=== PATIENT | female | born 1965 | race Caucasian/White ===

== ENCOUNTER 2017-01-28 15:39 | Emergency (ER) | payer BC ==
[2017-01-28 15:46] VITALS: TEMP 97.7
--- NOTE | 2017-01-28 16:52 | ED ---
Extremity Problem HPI - General Chief complaint: Extremity Problem,Nontraumatic Stated complaint: Hip Pain Source: patient Mode of arrival: wheelchair Limitations: no limitations - History of Present Illness Initial comments: Patient is a 52-year-old female present for evaluation for right hip pain. Past medical history as below. Patient states that she's been having this right hip pain for several weeks. It acutely worsened over the last 24-48 hours. States the pain is 28 out of 10. Denies any fall or trauma to the right hip. She saw her primary care physician who directed her to orthopedics. They ordered an MRI which the patient could not tolerate secondary to her being claustrophobic. His and recommended that she come to the ER for further evaluation. Plain films provided by the PCP were negative for acute fracture dislocation. There is a questionable cyst. No redness or warmth to the area. The patient states that her right leg is swollen. Cannot ambulate well. Denies any IV drug abuse. No urinary symptoms. No vaginal discharge. Denies any other systemic signs such as fever, chills, headache and changes of vision, URI symptoms, shortness breath, cough, chest pain, nausea, vomiting, diarrhea, pain or burning with urination. - Related Data Home Medications Medication Instructions Recorded Confirmed Cyclobenzaprine [Flexeril] 10 mg PO TID 01/28/17 01/28/17 Diazepam [Valium] 5 mg PO ONCE 01/28/17 01/28/17 HYDROcodone/APAP 10-325MG [[place] 1 tab PO DAILY PRN 01/28/17 01/28/17 10-325] Previous Rx's Medication Instructions Recorded Naproxen [Naprosyn] 500 mg PO Q12HR #10 tab 01/28/17 predniSONE 40 mg PO DAILY #4 tab 01/28/17 Allergies Allergy/AdvReac Type Severity Reaction Status Date / Time Penicillins Allergy Unknown Verified 01/28/17 16:32 Review of Systems ROS Statement: Those systems with pertinent positive or pertinent negative responses have been documented in the HPI. ROS Other: All systems not noted in ROS Statement are negative. Past Medical History Past Medical History: No Reported History History of Any Multi-Drug Resistant Organisms: None Reported Past Surgical History: Section, Hysterectomy Past Psychological History: Anxiety Smoking Status: Never smoker Past Alcohol Use History: Occasional Past Drug Use History: None Reported General Exam Limitations: no limitations General appearance: alert, in no apparent distress, other (Sitting upright in bed and states that she is in pain) Head exam: Present: atraumatic, normocephalic, normal inspection Eye exam: Present: normal appearance, PERRL, EOMI. Absent: scleral icterus, conjunctival injection, periorbital swelling ENT exam: Present: normal exam, mucous membranes moist Neck exam: Present: normal inspection. Absent: tenderness, meningismus, lymphadenopathy Respiratory exam: Present: normal lung sounds bilaterally. Absent: respiratory distress, wheezes, rales, rhonchi, stridor Cardiovascular Exam: Present: regular rate, normal rhythm, normal heart sounds. Absent: systolic murmur, diastolic murmur, rubs, gallop, clicks GI/Abdominal exam: Present: soft, normal bowel sounds. Absent: distended, tenderness, guarding, rebound, rigid Extremities exam: Present: normal inspection, tenderness, normal capillary refill, other (The right hip is guarded in flexion. No overlying cellulitis or masses palpated. There is a palpable tendon in the proximal femur which is exquisitely tender to the touch. Limited range of motion of the right knee. No swelling to the right knee.). Absent: pedal edema, joint swelling, calf tenderness Back exam: Present: normal inspection Neurological exam: Present: alert, oriented X3, CN II-XII intact, other ( Sensation intact of the right lower extremity. Pulses are equal bilaterally.) Psychiatric exam: Present: normal affect, normal mood Skin exam: Present: warm, dry, intact, normal color. Absent: rash Course Vital Signs 01/28/17 01/28/17 01/28/17 15:41 19:56 20:43 Temperature 97.7 F Pulse Rate 96 70 65 Respiratory 20 18 16 Rate Blood Pressure 98/62 154/60 145/90 O2 Sat by Pulse 98 99 97 Oximetry Medical Decision Making - Medical Decision Making Patient is a 52-year-old female presents for evaluation for worsening right hip pain over the last several weeks. Unable to tolerate an MRI today. No acute fracture dislocation on plain films today. However she is exquisitely tender the right hip. Questionable palpable tendon to the right proximal femur. We will order a venous duplex of the right lower extremity. CT right pelvis. Basic labs. Patient does not want anything for pain at this time. 1700: Patient requesting something for pain. Ordered morphine and Zofran and Toradol. 1719: Reviewed basic labs. Hyperkalemia 5.4. Ordered an EKG. Bilirubin slightly elevated. Rest of her labs are within normal limits. Awaiting CT imaging and ultrasound findings. 1757: Reviewed EKG. Normal sinus rhythm at 71. [place] 124. QRS 86. QTc 423. No ST changes. No findings consistent with hyperkalemia. There is Q waves in II, III, and F aVF. 1899: Discussed urinalysis findings with the patient. She states that she always has blood in her urine and always has oxalate crystals in her urine. Denies any ethylene glycol ingestion. Denies history of kidney stones. Awaiting CPK with the CT findings of myositis of the right gluteus. Pain is controlled at this time as long she is not moving. 2024: Discussed the case with Dr. Coughlin -encourage discharge with steroids, naproxen, muscle relaxer. We will discuss with the patient and she feels comfortable discharge versus observation for pain control. Patient actually states that her pain is greatly improved. Can ambulate. Discussed my concerns in the conversation I had with Dr. Coughlin. As her pain is improved and she has physical exam findings of tendinitis, she elected to go home and trial of naproxen, prednisone. She was given a prescription for Flexeril for home by her primary care physician. She also has orthopedic evaluation established. Again she elects to go home. Discussed risks and benefits. States that she was closing can return immediately if her symptoms change or worsen. She will return if she develops any high fevers or any redness or warmth to the right hip. She does not have any symptoms of this at this time. Discussed further signs and symptoms on when to return to the emergency department for further evaluation. Worse understanding. Comfortable discharge home and will call her primary care physician and orthopedic surgeon for reevaluation tomorrow. - Lab Data Result diagrams: 01/28/17 16:55 01/28/17 16:55 Lab Results 01/28/17 01/28/17 01/28/17 Range/Units 16:55 16:55 16:55 WBC 9.8 (3.8-10.6) k/uL RBC 4.65 (3.80-5.40) m/uL Hgb 15.1 (11.4-16.0) gm/dL Hct 44.6 (34.0-46.0) % MCV 95.9 (80.0-100.0) fL MCH 32.4 (25.0-35.0) pg MCHC 33.8 (31.0-37.0) g/dL RDW 13.5 (11.5-15.5) % Plt Count 310 (150-450) k/uL Neutrophils % 78 % Lymphocytes % 13 % Monocytes % 5 % Eosinophils % 1 % Basophils % 1 % Neutrophils # 7.6 (1.3-7.7) k/uL Lymphocytes # 1.3 (1.0-4.8) k/uL Monocytes # 0.5 (0-1.0) k/uL Eosinophils # 0.1 (0-0.7) k/uL Basophils # 0.1 (0-0.2) k/uL Sodium 139 (137-145) mmol/L Potassium 5.4 H (3.5-5.1) mmol/L Chloride 108 H (98-107) mmol/L Carbon Dioxide 22 (22-30) mmol/L Anion Gap 9 mmol/L BUN 12 (7-17) mg/dL Creatinine 0.70 (0.52-1.04) mg/dL Est GFR (MDRD) Af Amer >60 (>60 ml/min/1.73 sqM) Est GFR (MDRD) Non-Af >60 (>60 ml/min/1.73 sqM) Glucose 121 H (74-99) mg/dL Calcium 10.7 H (8.4-10.2) mg/dL Total Bilirubin 1.7 H (0.2-1.3) mg/dL AST 21 (14-36) U/L ALT 29 (9-52) U/L Alkaline Phosphatase 71 (38-126) U/L Creatine Kinase 42 (30-135) U/L Total Protein 7.0 (6.3-8.2) g/dL Albumin 4.5 (3.5-5.0) g/dL Urine Color Urine Appearance (Clear) Urine pH (5.0-8.0) Ur Specific [place] (1.001-1.035) Urine Protein (Negative) Urine Glucose (UA) (Negative) Urine Ketones (Negative) Urine Blood (Negative) Urine Nitrite (Negative) Urine Bilirubin (Negative) Urine Urobilinogen (<2.0) mg/dL Ur Leukocyte Esterase (Negative) Urine RBC (0-5) /hpf Urine WBC (0-5) /hpf Ur Squamous Epith Cells (0-4) /hpf Calcium Oxalate Crystal (None) /hpf Amorphous Sediment (None) /hpf Hyaline Casts (0-2) /lpf Urine Mucus (None) /hpf 01/28/17 Range/Units 18:05 WBC (3.8-10.6) k/uL RBC (3.80-5.40) m/uL Hgb (11.4-16.0) gm/dL Hct (34.0-46.0) % MCV (80.0-100.0) fL MCH (25.0-35.0) pg MCHC (31.0-37.0) g/dL RDW (11.5-15.5) % Plt Count (150-450) k/uL Neutrophils % % Lymphocytes % % Monocytes % % Eosinophils % % Basophils % % Neutrophils # (1.3-7.7) k/uL Lymphocytes # (1.0-4.8) k/uL Monocytes # (0-1.0) k/uL Eosinophils # (0-0.7) k/uL Basophils # (0-0.2) k/uL Sodium (137-145) mmol/L Potassium (3.5-5.1) mmol/L Chloride (98-107) mmol/L Carbon Dioxide (22-30) mmol/L Anion Gap mmol/L BUN (7-17) mg/dL Creatinine (0.52-1.04) mg/dL Est GFR (MDRD) Af Amer (>60 ml/min/1.73 sqM) Est GFR (MDRD) Non-Af (>60 ml/min/1.73 sqM) Glucose (74-99) mg/dL Calcium (8.4-10.2) mg/dL Total Bilirubin (0.2-1.3) mg/dL AST (14-36) U/L ALT (9-52) U/L Alkaline Phosphatase (38-126) U/L Creatine Kinase (30-135) U/L Total Protein (6.3-8.2) g/dL Albumin (3.5-5.0) g/dL Urine Color Yellow Urine Appearance Cloudy H (Clear) Urine pH 6.5 (5.0-8.0) Ur Specific [place] 1.026 (1.001-1.035) Urine Protein 1+ H (Negative) Urine Glucose (UA) Negative (Negative) Urine Ketones Negative (Negative) Urine Blood Small H (Negative) Urine Nitrite Negative (Negative) Urine Bilirubin Negative (Negative) Urine Urobilinogen 2.0 (<2.0) mg/dL Ur Leukocyte Esterase Small H (Negative) Urine RBC 44 H (0-5) /hpf Urine WBC 8 H (0-5) /hpf Ur Squamous Epith Cells 13 H (0-4) /hpf Calcium Oxalate Crystal Few H (None) /hpf Amorphous Sediment Occasional H (None) /hpf Hyaline Casts 8 H (0-2) /lpf Urine Mucus Many H (None) /hpf Disposition Clinical Impression: Right hip pain, Tendinitis Disposition: HOME SELF-CARE Condition: Good Instructions: Arthralgia (ED), Hip Pain (ED) Prescriptions: Naproxen [Naprosyn] 500 mg PO Q12HR #10 tab predniSONE 40 mg PO DAILY #4 tab Referrals: Paul Whitt MD [Primary Care Provider] - 1-2 days
[2017-01-28] MEDS ORDERED: MORPHINE SULFATE 4 MG/ML SYRINGE IVP STA (16:58)
[2017-01-28] MEDS ORDERED: ONDANSETRON 4 MG/2 ML VIAL IVP STA (16:58)
[2017-01-28] MEDS ORDERED: KETOROLAC 30 MG/ML 1 ML VIAL IVP STA (16:58)
[2017-01-28 17:06] LABS: Basophils # (A) 0.1 k/uL (0-0.2); Basophils % (A) 1 %; CHCM 34.6; Eosinophils # (A) 0.1 k/uL (0-0.7); Eosinophils % (A) 1 %; HCT 44.6 % (34.0-46.0); HDW 2.54; HGB 15.1 gm/dL (11.4-16.0); Luc # (Auto) 0.14; Luc % (Auto) 1; Lymphocytes # (A) 1.3 k/uL (1.0-4.8); Lymphocytes % (A) 13 %; MCH 32.4 pg (25.0-35.0); MCHC 33.8 g/dL (31.0-37.0); MCV 95.9 fL (80.0-100.0); Mean Platelet Volume 7.2; Monocytes # (A) 0.5 k/uL (0-1.0); Monocytes % (A) 5 %; Neutrophils # (A) 7.6 k/uL (1.3-7.7); Neutrophils % (A) 78 %; RBC 4.65 m/uL (3.80-5.40); RDW 13.5 % (11.5-15.5); WBC 9.8 k/uL (3.8-10.6); WBC (Perox) 9.09
[2017-01-28 17:17] LABS: ALT 29 U/L (9-52); AST 21 U/L (14-36); Alkaline Phosphatase 71 U/L (38-126); Anion Gap 9 mmol/L; Blood Urea Nitrogen 12 mg/dL (7-17); Calcium 10.7 mg/dL (8.4-10.2); Carbon Dioxide 22 mmol/L (22-30); Chloride 108 mmol/L (98-107); Glucose 121 mg/dL (74-99); Non-African American GFR(MDRD) >60 (>60 ml/min/1.73 sqM); Potassium 5.4 mmol/L (3.5-5.1); Sodium 139 mmol/L (137-145); Total Bilirubin 1.7 mg/dL (0.2-1.3)
--- NOTE | 2017-01-28 17:45 | US ---
EXAMINATION TYPE: US venous doppler duplex LE RT DATE OF EXAM: 01/28/2017 5:30 PM COMPARISON: NONE CLINICAL HISTORY: Pain. Right leg pain SIDE PERFORMED: Right TECHNIQUE: The lower extremity deep venous system is examined utilizing real time linear array sonog latrice with graded compression, doppler sonography and color-flow sonography. VESSELS IMAGED: External Iliac Vein (EIV) Common Femoral Vein Deep Femoral Vein Greater Saphenous Vein * Femoral Vein Popliteal Vein Small Saphenous Vein * Proximal Calf Veins (* superficial vessels) Grayscale, color doppler, spectral doppler imaging performed of the deep veins of the lower extremity Tthere is normal flow, compressibility, vascular waveforms. Right Leg: Negative for DVT IMPRESSION: No evidence of DVT right leg
[2017-01-28 18:51] LABS: Amorphous Sediment,Urine Occasional /hpf; Appearance,Urine Cloudy (Clear); Bilirubin,Urine Negative (Negative); Calcium Oxalate Crystals,Urine Few /hpf; Glucose,Urine (UA) Negative (Negative); Ketones,Urine Negative (Negative); Leukocyte Esterase,Urine Small (Negative); Mucus,Urine Many /hpf; Nitrite,Urine Negative (Negative); PH, Urine 6.5 (5.0-8.0); Particle Count 24113; Protein,Urine 1+ (Negative); RBC,Urine 44 /hpf (0-5); Specific Gravity,Urine 1.026 (1.001-1.035); Squamous Epithelial Cell,Urine 13 /hpf (0-4); UA Billing (MACRO vs. MICRO) MICRO; WBC,Urine 8 /hpf (0-5)
--- NOTE | 2017-01-28 18:59 | CT ---
EXAMINATION TYPE: CT hip RT wo con DATE OF EXAM: 01/28/2017 COMPARISON: NONE HISTORY: RIGHT HIP PAIN. NO KNOWN INJURY. CT DLP: 389 mGycm Automated exposure control for dose reduction was used. Unenhanced CT of the right hip was performed with bone and soft tissue window settings submitted. Sagittal and coronal reconstruction is obtained. FINDINGS: There is elongate curvilinear density in the region of the right gluteus medius musculature there zan ears to be mild edema of the musculature.The calcification extends from the region of the greater tro chanter to the supra-acetabular region. No distinct mass is appreciated at this time. Underlying osse ous structures are grossly intact without evidence for fracture or dislocation. No intraosseous lesio n is seen. IMPRESSION: 1. LINEAR CALCIFICATION WITHIN THE GLUTEUS MEDIUS MUSCULATURE WITH UNDERLYING MUSCULAR EDEMA MAY REFL ECT CHANGES OF MYOSITIS OSSIFICANS. CORRELATE CLINICALLY. NO FRACTURE IS SEEN.
[2017-01-28] MEDS ORDERED: methylPREDNISolone SOD SUCCI 125 MG/2 ML VIAL IV STA (20:21)
[2017-01-28 20:44] VITALS: BP 145/90; PULSE 65; RESP 16
== END 2017-01-28 20:43 | disposition home or self-care (01) ==
LOC: EC 15:39
DX: M77.9 Enthesopathy, unspecified (principal); M25.551 Pain in right hip; F41.9 Anxiety disorder, unspecified; Z79.899 Other long term (current) drug therapy; Z88.0 Allergy status to penicillin
CPT/HCPCS: 36415; 93005; 80053; 82550; 85025; 81001; 93971; 73700; 99284; 96374; 96375 ×3; J2270; J2930; J2405; J1885

== ENCOUNTER 2021-03-14 19:29 | Emergency (ER) | payer BC ==
[2021-03-14 19:53] VITALS: RESP 18; TEMP 98.1
[2021-03-14] MEDS ORDERED: SODIUM CHLORIDE 0.9% 1,000 ML IV STA (20:10)
--- NOTE | 2021-03-14 20:18 | ED ---
General Adult HPI - General Chief complaint: Syncope Stated complaint: Syncope Time Seen by Provider: 03/14/21 19:54 Source: patient, EMS Mode of arrival: EMS Limitations: no limitations - History of Present Illness Initial comments: Dictation was produced using [employer] dictation software. please excuse any grammatical, word or spelling errors. Chief Complaint: 56-year-old feel presents after episode of syncope History of Present Illness: Patient is a 56-year-old female she presents to the emergency department for episode of syncope. Patient was sitting at the kitchen table helping family with homework when all of a sudden she had an episode of syncope. She woke up immediately after. After the syncope she had some short-lived chest pain and shortness of breath. Patient has a little symptoms currently. She states she feels at baseline. Yesterday patient had total knee replacement performed by Dr. Batista. She states that her pain is significant worsened yesterday. She's been taking narcotic medications to manage her pain. Patient avoids of some mild calf pain. No history of DVT. She is not on any anti-cognition medications. Denies any cardiac history. Denies any daily medications. The ROS documented in this emergency department record has been reviewed and confirmed by me. Those systems with pertinent positive or negative responses have been documented in the HPI. All other systems are other negative and/or noncontributory. PHYSICAL EXAM: General Impression: Alert and oriented x3, not in acute distress HEENT: Normocephalic atraumatic, extra-ocular movements intact, pupils equal and reactive to light bilaterally, mucous membranes moist. Cardiovascular: Heart regular rate and rhythm Chest: Able to complete full sentences, no retractions, no tachypnea Abdomen: abdomen soft, non-tender, non-distended, no organomegaly Musculoskeletal: Pulses present and equal in all extremities, no peripheral edema Motor: no focal deficits noted Neurological: CN II-XII grossly intact, no focal motor or sensory deficits noted Skin: Intact with no visualized rashes Psych: Normal affect and mood ED course: 56-year-old female who underwent total knee replacement of the left knee yesterday presents to emergency department after episode of syncope. Patient has no medical comorbidities. He has any chest pain or shortness of breath at the bedside. EKG is unremarkable. Vital signs upon arrival shows blood pressure 91/57, rest of vital signs within acceptable limits. EKG interpretation: Ventricular rate 65, normal sinus rhythm, UT interval 120, QRS 86, QTC 376. No UT prolongation, no QTC prolongation, no ST or T-wave changes noted. Overall, this EKG is unremarkable Laboratory evaluation obtained. CBC, metabolic panel is unremarkable. There is some slight dehydration. Venous Doppler study shows no sonographic evidence of DVT in the left lower extremity. Patient observed in the emergency department for approximately 2 hours and 30 minutes. She is really value to bedside at 10:00 PM found to be stable medical condition. Repeat vitals are improved. Patient clinical stable. Patient be discharged. Patient has no high-risk features for syncope. Advised to follow-up with primary care doctor. Return precautions discussed. - Related Data Home Medications Medication Instructions Recorded Confirmed Cyclobenzaprine [Flexeril] 10 mg PO TID 01/28/17 01/28/17 HYDROcodone/APAP 10-325MG [[place] 1 tab PO DAILY PRN 01/28/17 01/28/17 10-325] diazePAM [Valium] 5 mg PO ONCE 01/28/17 01/28/17 Previous Rx's Medication Instructions Recorded Naproxen [Naprosyn] 500 mg PO Q12HR #10 tab 01/28/17 predniSONE [Deltasone] 40 mg PO DAILY #4 tab 01/28/17 Allergies Allergy/AdvReac Type Severity Reaction Status Date / Time Penicillins Allergy Unknown Verified 01/28/17 16:32 Review of Systems ROS Statement: Those systems with pertinent positive or pertinent negative responses have been documented in the HPI. ROS Other: All systems not noted in ROS Statement are negative. Past Medical History Past Medical History: No Reported History History of Any Multi-Drug Resistant Organisms: None Reported Past Surgical History: Section, Hysterectomy Additional Past Surgical History / Comment(s): Left knee replacement Past Psychological History: Anxiety Smoking Status: Former smoker Past Alcohol Use History: Occasional Past Drug Use History: None Reported General Exam Limitations: no limitations Course Vital Signs 03/14/21 03/14/21 03/14/21 19:40 20:17 20:22 Temperature 98.1 F Pulse Rate 71 80 Pulse Rate [ 70 Manager Operating ] Respiratory 18 18 Rate Blood Pressure 91/57 105/55 O2 Sat by Pulse 96 96 Oximetry Medical Decision Making - Lab Data Result diagrams: 03/14/21 20:05 03/14/21 20:05 Lab Results 03/14/21 03/14/21 Range/Units 20:05 20:05 WBC 7.7 (3.8-10.6) k/uL RBC 3.47 L (3.80-5.40) m/uL Hgb 11.3 L (11.4-16.0) gm/dL Hct 34.0 (34.0-46.0) % MCV 98.0 (80.0-100.0) fL MCH 32.6 (25.0-35.0) pg MCHC 33.3 (31.0-37.0) g/dL RDW 12.6 (11.5-15.5) % Plt Count 263 (150-450) k/uL MPV 7.4 Neutrophils % 75 % Lymphocytes % 17 % Monocytes % 5 % Eosinophils % 1 % Basophils % 1 % Neutrophils # 5.8 (1.3-7.7) k/uL Lymphocytes # 1.3 (1.0-4.8) k/uL Monocytes # 0.4 (0-1.0) k/uL Eosinophils # 0.1 (0-0.7) k/uL Basophils # 0.0 (0-0.2) k/uL Sodium 138 (137-145) mmol/L Potassium 4.2 (3.5-5.1) mmol/L Chloride 109 H (98-107) mmol/L Carbon Dioxide 24 (22-30) mmol/L Anion Gap 5 mmol/L BUN 18 H (7-17) mg/dL Creatinine 0.61 (0.52-1.04) mg/dL Est GFR (CKD-EPI)AfAm >90 (>60 ml/min/1.73 sqM) Est GFR (CKD-EPI)NonAf >90 (>60 ml/min/1.73 sqM) Glucose 108 H (74-99) mg/dL Calcium 9.1 (8.4-10.2) mg/dL Magnesium 1.9 (1.6-2.3) mg/dL Disposition Clinical Impression: Syncope Disposition: HOME SELF-CARE Condition: Good Instructions (If sedation given, give patient instructions): Syncope (ED) Is patient prescribed a controlled substance at d/c from ED?: No Referrals: Paul Whitt MD [Primary Care Provider] - 1-2 days
[2021-03-14 20:19] LABS: Basophils % (A) 1 %; Eosinophils # (A) 0.1 k/uL (0-0.7); Eosinophils % (A) 1 %; HGB 11.3 gm/dL (11.4-16.0); Lymphocytes # (A) 1.3 k/uL (1.0-4.8); Lymphocytes % (A) 17 %; MCH 32.6 pg (25.0-35.0); MCHC 33.3 g/dL (31.0-37.0); Mean Platelet Volume 7.4; Monocytes # (A) 0.4 k/uL (0-1.0); Monocytes % (A) 5 %; Neutrophils # (A) 5.8 k/uL (1.3-7.7); Neutrophils % (A) 75 %; Platelet Count 263 k/uL (150-450); RBC 3.47 m/uL (3.80-5.40); RDW 12.6 % (11.5-15.5); WBC 7.7 k/uL (3.8-10.6)
[2021-03-14 20:23] VITALS: BP 105/55; PULSE 80
[2021-03-14 20:27] LABS: African American GFR (CKD) >90 (>60 ml/min/1.73 sqM); Anion Gap 5 mmol/L; Blood Urea Nitrogen 18 mg/dL (7-17); Calcium 9.1 mg/dL (8.4-10.2); Carbon Dioxide 24 mmol/L (22-30); Chloride 109 mmol/L (98-107); Glucose 108 mg/dL (74-99); Magnesium 1.9 mg/dL (1.6-2.3); Non-African American GFR(CKD) >90 (>60 ml/min/1.73 sqM); Potassium 4.2 mmol/L (3.5-5.1); Sodium 138 mmol/L (137-145)
--- NOTE | 2021-03-14 21:50 | US ---
EXAMINATION TYPE: US venous doppler duplex LE LT DATE OF EXAM: 03/14/2021 8:11 PM COMPARISON: NONE CLINICAL HISTORY: suspect DVT. Leg swelling post total knee day prior. SIDE PERFORMED: Left TECHNIQUE: The lower extremity deep venous system is examined utilizing real time linear array sonog latrice with graded compression, doppler sonography and color-flow sonography. VESSELS IMAGED: Common Femoral Vein Deep Femoral Vein Greater Saphenous Vein * Femoral Vein Popliteal Vein Small Saphenous Vein * Proximal Calf Veins (* superficial vessels) Left Leg: Negative for DVT IMPRESSION: 1. No sonographic evidence of deep venous thrombosis in the left lower extremity. 2. Grayscale, color doppler, spectral doppler imaging performed of the deep veins of the lower extre mities. There is normal flow, compressibility, vascular waveforms.
== END 2021-03-15 06:41 | disposition home or self-care (01) ==
LOC: EC 19:29
DX: R55 Syncope and collapse (principal); F41.9 Anxiety disorder, unspecified; Z88.0 Allergy status to penicillin; Z90.710 Acquired absence of both cervix and uterus; Z96.662 Presence of left artificial ankle joint; Z87.891 Personal history of nicotine dependence
CPT/HCPCS: 36415; 80048; 83735; 85025; 93005; 96360; 99284

== ENCOUNTER 2022-04-23 09:53 | Emergency (ER) | payer BC ==
[2022-04-23 09:58] VITALS: RESP 16
--- NOTE | 2022-04-23 10:11 | ED ---
Chest Pain HPI - General Chief Complaint: Chest Pain Stated Complaint: Chest Pain Time Seen by Provider: 04/23/22 10:00 Source: patient Mode of arrival: wheelchair Limitations: no limitations - History of Present Illness Initial Comments: 57-year-old previously healthy female presents to emergency room with reported chest pain. States the chest pain has been going on over the past few months however the chest pain became significantly worse over the past few weeks. States that it is substernal, 6 out of 10 without radiation. Dull in nature. No associated shortness of breath, nausea or diaphoresis. Denies any fevers, chills or cough. No previous history of cardiac disease. No family history of sudden cardiac . States that her sister has developed cardiac issues in her 60s. Patient has never had any stress testing. She denies calf pain or swelling. No recent travel. No history of DVT or PE. No active chest pain at this time. Denies ripping or tearing sensation to her back. Has not attempted to take any medications at home for her symptoms. No other alleviating, minister helper modifying factors - Related Data Home Medications Medication Instructions Recorded Confirmed Dextroamphetamine/Amphetamine 15 mg PO DAILY PRN 04/23/22 04/23/22 [Adderall] Ferrous Sulfate [Feosol] 325 mg PO DAILY 04/23/22 04/23/22 Allergies Allergy/AdvReac Type Severity Reaction Status Date / Time Penicillins Allergy Swelling Verified 04/23/22 12:28 Review of Systems ROS Statement: Those systems with pertinent positive or pertinent negative responses have been documented in the HPI. ROS Other: All systems not noted in ROS Statement are negative. EKG Findings - EKG Comments: EKG Findings:: EKG demonstrates sinus bradycardia with a rate of 58. MA interval 135. QRS 86. QTC 380. No acute ST segment elevations. Biphasic T- wave in V2 with an inverted T-wave in aVL. EKG interpreted by myself Past Medical History Past Medical History: No Reported History History of Any Multi-Drug Resistant Organisms: None Reported Past Surgical History: Section, Hysterectomy Additional Past Surgical History / Comment(s): Left knee replacement Past Psychological History: Anxiety Smoking Status: Former smoker Past Alcohol Use History: Occasional Past Drug Use History: None Reported General Exam Limitations: no limitations General appearance: alert, in no apparent distress Head exam: Present: atraumatic, normocephalic, normal inspection Eye exam: Present: normal appearance, PERRL, EOMI. Absent: scleral icterus, conjunctival injection, periorbital swelling ENT exam: Present: normal exam, mucous membranes moist Neck exam: Present: normal inspection. Absent: tenderness, meningismus, lymphadenopathy Respiratory exam: Present: normal lung sounds bilaterally. Absent: respiratory distress, wheezes, rales, rhonchi, stridor Cardiovascular Exam: Present: regular rate, normal rhythm, normal heart sounds. Absent: systolic murmur, diastolic murmur, rubs, gallop, clicks GI/Abdominal exam: Present: soft, normal bowel sounds. Absent: distended, tenderness, guarding, rebound, rigid Extremities exam: Present: normal inspection, full ROM, normal capillary refill. Absent: tenderness, pedal edema, joint swelling, calf tenderness Back exam: Present: normal inspection Neurological exam: Present: alert, oriented X3, CN II-XII intact Psychiatric exam: Present: normal affect, normal mood Skin exam: Present: warm, dry, intact, normal color. Absent: rash Course Vital Signs 04/23/22 04/23/22 04/23/22 09:56 10:00 13:21 Temperature 98.2 F 98.7 F Pulse Rate 57 L 62 Respiratory 16 16 Rate Blood Pressure 117/66 105/64 O2 Sat by Pulse 100 99 Oximetry Chest Pain MDM - MDM Upon arrival patient was placed into room 3. A thorough history and physical exam was performed. IV access established. Laboratory studies were conducted. Patient does have a chest x-ray performed. 12-lead EKG demonstrates no acute ST segment elevations or depressions. No concerning ischemic findings. Heart score is 1. Did discuss the results with the patient. Patient would like to follow-up in the outpatient setting. We did provide her with information for the cardiology office. Did recommend that she needs a Holter monitor, echo and possibly a stress test. Patient is to return to the emergency room should she have any new or worsening symptoms. Call the cardiology office today for an appointment. Patient was agreeable to this plan. Discharged home stable condition Disposition Clinical Impression: Chest pain Disposition: HOME SELF-CARE Condition: Stable Instructions (If sedation given, give patient instructions): Chest Pain (ED) Additional Instructions: You need a Holter monitor, echo and stress test. Please call the cardiology office if you do not hear from them as you will need an appointment. Please return for any new or worsening symptoms Is patient prescribed a controlled substance at d/c from ED?: No Referrals: None,Stated [Primary Care Provider] - 1-2 days Pineda Pelayo MD [STAFF PHYSICIAN] - 05/07/22 2:00 pm (Contact cardiology office if needing to change appointments. ) Time of Disposition: 12:53
--- NOTE | 2022-04-23 10:50 | XR ---
EXAMINATION TYPE: XR chest 2V DATE OF EXAM: 04/23/2022 10:46 AM COMPARISON: None TECHNIQUE: XR chest 2V Frontal and lateral views of the chest. CLINICAL INDICATION:Female, 57 years old with history of Chest Pain; FINDINGS: Lungs/Pleura: There is no evidence of pleural effusion, focal consolidation, or pneumothorax. Pulmonary vascularity: Unremarkable. Heart/mediastinum: Cardiomediastinal silhouette is unremarkable. Musculoskeletal: No acute osseous pathology. IMPRESSION: No acute cardiopulmonary disease/process.
[2022-04-23 11:00] VITALS: TEMP 98.7
[2022-04-23 11:03] LABS: ALT 17 U/L (4-34); AST 23 U/L (14-36); African American GFR (CKD) >90 (>60 ml/min/1.73 sqM); Albumin 4.4 g/dL (3.5-5.0); Alkaline Phosphatase 82 U/L (38-126); Anion Gap 6 mmol/L; Blood Urea Nitrogen 17 mg/dL (7-17); Calcium 9.6 mg/dL (8.4-10.2); Carbon Dioxide 26 mmol/L (22-30); Chloride 108 mmol/L (98-107); Glucose 87 mg/dL (74-99); INR 0.9 (<1.2); Lipase 122 U/L (23-300); Magnesium 1.9 mg/dL (1.6-2.3); Non-African American GFR(CKD) >90 (>60 ml/min/1.73 sqM); Partial Thromboplastin Time 23.9 sec (22.0-30.0); Potassium 4.4 mmol/L (3.5-5.1); Prothrombin Time 10.1 sec (9.0-12.0); Sodium 140 mmol/L (137-145); Total Bilirubin 1.4 mg/dL (0.2-1.3); Total Protein 6.7 g/dL (6.3-8.2)
[2022-04-23 11:49] LABS: HCT 38.6 % (34.0-46.0); HGB 13.3 gm/dL (11.4-16.0); MCH 32.4 pg (25.0-35.0); MCHC 34.5 g/dL (31.0-37.0); MCV 93.8 fL (80.0-100.0); Mean Platelet Volume 8.3; Platelet Count 289 k/uL (150-450); RBC 4.12 m/uL (3.80-5.40); RDW 12.8 % (11.5-15.5); WBC 5.2 k/uL (3.8-10.6)
[2022-04-23 13:22] VITALS: BP 105/64; PULSE 62
== END 2022-04-23 13:15 | disposition home or self-care (01) ==
LOC: EC 09:53
DX: R07.9 Chest pain, unspecified (principal); F41.9 Anxiety disorder, unspecified; Z87.891 Personal history of nicotine dependence; Z79.899 Other long term (current) drug therapy; Z88.0 Allergy status to penicillin
CPT/HCPCS: 36415; 71046; 80053; 83690; 83735; 83880; 84484; 85027; 85610; 85730; 93005; 99285

== ENCOUNTER → 2022-11-09 | Outpatient (CLI) | payer BC ==
--- NOTE | 2022-11-10 20:02 | MM ---
Reason for Exam: Screening (asymptomatic). Last mammogram was performed 12 year(s) and 0 month(s) ago. Patient History: Menarche at age 12. First Full-Term at age 18. Hysterectomy at age 27. Postmenopausal. Patient used Hormonal Contraceptives for 1 year. Sister had breast cancer at or over age 50. Risk Values: Savannah 5 year model risk: 2.4%. NCI Lifetime model risk: 12.7%. Prior Study Comparison: No prior studies available for comparison. Tissue Density: The breast tissue is heterogeneously dense. This may lower the sensitivity of mammography. Findings: Analyzed By CAD. There is a 1 cm circumscribed low density mass anterior depth right breast within the upper inner quadrant. The low density suggests a benign etiology such as a cyst. Further ultrasound evaluation is recommended. Otherwise, no discrete abnormality is seen. Overall Assessment: Incomplete: need additional imaging evaluation, BI-RAD 0 Management: Diagnostic Breast Ultrasound of the right breast. Upper inner quadrant for possible 1 cm cyst/mass. [facility] will attempt to contact patient to return for supplemental views and ultrasound if indicated. Electronically signed and approved by: Calvin Zamarripa M.D. Radiologist
== END | disposition home or self-care (01) ==
LOC: RADMAMWWP 09:22
PROVIDERS: ATTEND Family Medicine
DX: Z12.31 Encounter for screening mammogram for malignant neoplasm of breast (principal); Z78.0 Asymptomatic menopausal state; Z80.3 Family history of malignant neoplasm of breast
CPT/HCPCS: 77063; 77067

== ENCOUNTER → 2022-11-16 | Outpatient (CLI) | payer BC ==
--- NOTE | 2022-11-16 10:47 | USB ---
Reason for Exam: Additional evaluation requested from abnormal screening. Patient History: Menarche at age 12. First Full-Term at age 18. Hysterectomy at age 27. Postmenopausal. Patient used Hormonal Contraceptives for 1 year. Sister had breast cancer at or over age 50. Risk Values: Savannah 5 year model risk: 2.4%. NCI Lifetime model risk: 12.7%. Technique: Method: Targeted. Prior Study Comparison: 02/29/2012 Bilateral MG screening mammo w CAD - 2, [facility]. 02/29/2012 Bilateral MG screening mammo w CAD - 2, [facility]. 11/09/2022 Bilateral MG 3D screening mammo w/cad, [facility]. Findings: The upper inner quadrant of the right breast, the axilla of the right breast and the retroareolar of the right breast were scanned. There is a cluster persists at the right 2:00 position measuring 7 mm. A few mildly prominent ducts noted. No solid mass is detected. Overall Assessment: Benign, BI-RAD 2 Management: Screening Mammogram of both breasts in 1 year. A clinical breast exam by your physician is recommended on an annual basis and results should be correlated with mammographic findings. This exam should not preclude additional follow-up of suspicious palpable abnormalities. Results were given to the patient verbally at the time of exam. Electronically signed and approved by: Cesar Munoz M.D. Radiologis
== END | disposition home or self-care (01) ==
LOC: RADUSWWP 10:20
PROVIDERS: ATTEND Family Medicine
DX: R92.8 Other abnormal and inconclusive findings on diagnostic imaging of breast (principal); Z78.0 Asymptomatic menopausal state; Z80.3 Family history of malignant neoplasm of breast

== ENCOUNTER 2023-02-21 13:48 | Emergency (ER) | payer BC ==
--- NOTE | 2023-02-21 14:55 | ED ---
Lower Extremity Injury HPI - General Chief Complaint: Extremity Injury, Lower Stated Complaint: fall Time Seen by Provider: 02/21/23 14:24 Source: patient, RN notes reviewed Mode of arrival: ambulatory Limitations: no limitations - History of Present Illness Initial Comments: This is a 58-year-old female who presents to the emergency department for right foot and ankle pain. States that about 2 hours prior to arrival she tripped on some stairs, falling on the right ankle. She has since been unable to bear weight. States that the area is also very painful to the touch. Denies hitting her head or sustaining any other injuries. Denies any fevers, chills, sore throat, cough, dyspnea, chest pain, palpitations, abdominal pain, nausea, vomiting, diarrhea, back pain, or headaches. MD Complaint: ankle injury, foot injury - Related Data Home Medications Medication Instructions Recorded Confirmed Dextroamphetamine/Amphetamine 15 mg PO DAILY PRN 04/23/22 04/23/22 [Adderall] Ferrous Sulfate [Feosol] 325 mg PO DAILY 04/23/22 04/23/22 Previous Rx's Medication Instructions Recorded HYDROcodone/APAP 5-325MG [Miramonte 1 tab PO Q6HR PRN 3 Days #12 tab 02/21/23 5-325] Allergies Allergy/AdvReac Type Severity Reaction Status Date / Time Penicillins Allergy Swelling Verified 02/21/23 13:57 Review of Systems ROS Statement: Those systems with pertinent positive or pertinent negative responses have been documented in the HPI. ROS Other: All systems not noted in ROS Statement are negative. Past Medical History Past Medical History: No Reported History History of Any Multi-Drug Resistant Organisms: None Reported Past Surgical History: Section, Hysterectomy Additional Past Surgical History / Comment(s): Left knee replacement Past Psychological History: Anxiety Smoking Status: Former smoker Past Alcohol Use History: Occasional Past Drug Use History: None Reported General Exam Limitations: no limitations General appearance: alert, in no apparent distress Head exam: Present: atraumatic, normocephalic, normal inspection Respiratory exam: Present: normal lung sounds bilaterally. Absent: respiratory distress, wheezes, rales, rhonchi, stridor Cardiovascular Exam: Present: regular rate, normal rhythm, normal heart sounds. Absent: systolic murmur, diastolic murmur, rubs, gallop, clicks Extremities exam: Present: other (Swelling and tenderness to the dorsal aspect of the right foot and lateral aspect of the right ankle. 2+ DP and PT pulses. Capillary refill less than 1 second.) Neurological exam: Present: alert, oriented X3, CN II-XII intact Psychiatric exam: Present: normal affect, normal mood Skin exam: Present: warm, dry, intact, normal color. Absent: rash Course Vital Signs 02/21/23 02/21/23 13:55 16:23 Temperature 98.4 F 99 F Pulse Rate 78 63 Respiratory 20 18 Rate Blood Pressure 112/62 117/76 O2 Sat by Pulse 99 97 Oximetry Procedures - Orthopedic Splinting/Casting Injury #1 Side: right Lower Extremity Injury Location: foot Lower Extremity Immobilizer: posterior splint, stirrup splint Other Orthopedic Equipment: crutches Medical Decision Making - Medical Decision Making This is a 58-year-old female who presents to the emergency department for right ankle pain. Was pt. sent in by a medical professional or institution? @ -No Did you speak to anyone other than the patient for history? @ -No Did you review nursing and triage notes? @ -Yes, and I agree, it is accurate with regards to the patient's symptoms. Were old charts reviewed? @ -No Differential Diagnosis? @ -Differential Ankle Pain/Injury: Fracture, dislocation, contusion, sprain, this is not meant to be an all- inclusive list. EKG interpreted by me (3pts min.)? @ -Not obtained X-rays interpreted by me (1pt min.)? @ -X-ray of the right foot and ankle obtained. My interpretation identifies a right fifth metatarsal fracture. CT interpreted by me (1pt min.)? @ -Not obtained U/S interpreted by me (1pt. min.)? @ -Not obtained What testing was considered but not performed? (CT, X-rays, U/S, labs)? Why? @ -None What meds were considered but not given? Why? @ -None Did you discuss the management of the patient with other professionals? @ -No Did you reconcile home meds? @ -No Was smoking cessation discussed for >3mins.? @ -No Was critical care preformed (if so, how long)? @ -No Were there social determinants of health that impacted care today? How? (Homelessness, low income, unemployed, alcoholism, drug addiction, transportation, low edu. Level, literacy, decrease access to med. care, intermediate, rehab)? @ -No Was there de-escalation of care discussed even if they declined? (Discuss DNR or withdrawal of care, Hospice)? @ -No What co-morbidities impacted this encounter? (DM, HTN, Smoking, COPD, CAD, Cancer, CVA, Hep., AIDS, mental health diagnosis, sleep apnea, morbid obesity)? @ -None Was patient admitted / discharged? @ -Discharged. X-ray of the right foot and ankle obtained. Imaging reveals a nondisplaced oblique fracture of the diaphysis of the right fifth metatarsal. Findings discussed with the patient. She was placed in a posterior stirrup splint and given crutches. Prescription for Miramonte provided with dosing instructions reviewed. Advised she alternate with ibuprofen and Tylenol as needed for pain relief and take the Miramonte sparingly when her pain is the most severe. She is also advised to keep the leg elevated and apply ice for 15-20 minutes every 2-3 hours. Information for orthopedic follow-up provided. She is instructed to contact them first thing in the morning for a follow-up appointment. Undiagnosed new problem with uncertain prognosis? @ -None Drug Therapy requiring intensive monitoring for toxicity (Heparin, Nitro, Insulin, Cardizem)? @ -None Were any procedures done? @ -Posterior stirrup splint application Diagnosis/symptom? @ -Right fifth metatarsal fracture Acute, or Chronic, or Acute on Chronic? @ -Acute Uncomplicated (without systemic symptoms) or Complicated (systemic symptoms)? @ -Uncomplicated Side effects of treatment? @ -None Exacerbation, Progression, or Severe Exacerbation] @ -Not applicable Poses a threat to life or bodily function? @ -Yes, this will impact her ability to ambulate Return precautions reviewed in depth, the patient is instructed to return to the emergency department with any new, worsening, or concerning symptoms. Patient verbalized understanding. This case was discussed in detail with the attending ED physician, Dr. Dinero. Presentation, findings, and treatment plan discussed in detail as well. - Radiology Data Radiology results: report reviewed, image reviewed Disposition Clinical Impression: Fracture of fifth metatarsal bone of right foot Disposition: HOME SELF-CARE Instructions (If sedation given, give patient instructions): Foot Fracture in Adults (ED), Splint Care (ED) Additional Instructions: Return to the emergency department with any new, worsening, or concerning sy mptoms. Alternate with ibuprofen and Tylenol as needed for pain relief. Take the Miramonte sparingly when your pain is the most severe. Apply ice for 15-20 minutes every 2-3 hours. Contact orthopedics first thing Wednesday morning for a follow-up appointment. Follow up with your primary care provider in 1-2 days. Prescriptions: HYDROcodone/APAP 5-325MG [Miramonte 5-325] 1 tab PO Q6HR PRN 3 Days #12 tab PRN Reason: Pain Is patient prescribed a controlled substance at d/c from ED?: Yes When asked, does pt state using other controlled substances?: No If prescribed controlled substance>3 days was MAPS reviewed?: Prescribed <3 Days Referrals: Len Schaefer DO [Primary Care Provider] - 1-2 days Francis Graham MD [STAFF PHYSICIAN] - 1-2 days
--- NOTE | 2023-02-21 15:09 | XR ---
EXAMINATION TYPE: XR foot complete RT DATE OF EXAM: 02/21/2023 CLINICAL HISTORY: pain TECHNIQUE: Frontal, lateral and oblique images of the right foot are obtained. COMPARISON: None. FINDINGS: Virtually nondisplaced oblique fracture of the diaphysis of the right fifth metatarsal. The moderate hallux valgus deformity of the great toe. The overlying soft tissue appears unremarkable. IMPRESSION: Fracture as noted above.
--- NOTE | 2023-02-21 15:10 | XR ---
EXAMINATION TYPE: XR ankle complete RT DATE OF EXAM: 02/21/2023 COMPARISON: NONE HISTORY: Pain TECHNIQUE: Frontal, lateral and oblique images of the right ankle are obtained. COMPARISON: None. FINDINGS: There is no acute fracture/dislocation evident. The joint spaces appear within normal maria its. The overlying soft tissue appears unremarkable. IMPRESSION: There is no acute fracture or dislocation seen.
[2023-02-21] MEDS ORDERED: ACET/COD 300 MG/30 MG STARTER PACK 6 TAB BTL PO STA (15:43)
[2023-02-21] MEDS ORDERED: IBUPROFEN 600 MG STARTER PACK 4 TAB BTL PO STA (15:43)
[2023-02-21 16:27] VITALS: BP 117/76; PULSE 63; RESP 18; TEMP 99
== END 2023-02-21 16:25 | disposition home or self-care (01) ==
LOC: EC 13:48
DX: S62.306A Unspecified fracture of fifth metacarpal bone, right hand, initial encounter for closed fracture (principal); Z86.59 Personal history of other mental and behavioral disorders; Z87.891 Personal history of nicotine dependence; Z88.0 Allergy status to penicillin; W01.0XXA Fall on same level from slipping, tripping and stumbling without subsequent striking against object, initial encounter
CPT/HCPCS: 29515; 99283

== ENCOUNTER → 2023-08-03 | Outpatient (CLI) | payer BC ==
[2023-08-03 15:34] LABS: Basophils # (A) 0.06 X 10*3/uL (0.00-0.10); Basophils % (A) 0.9 %; Eosinophils # (A) 0.11 X 10*3/uL (0.04-0.35); Eosinophils % (A) 1.6 %; HCT 42.7 % (37.2-46.3); HGB 14.1 g/dL (12.0-15.0); Lymphocytes # (A) 1.23 X 10*3/uL (0.90-5.00); Lymphocytes % (A) 17.8 %; MCH 31.5 pg (27.0-32.0); MCV 95.5 FL (80.0-97.0); Mean Platelet Volume 10.6 FL (9.5-12.2); Monocytes # (A) 0.42 X 10*3/uL (0.20-1.00); Monocytes % (A) 6.1 %; NRBC Per 100 WBC 0 X 10*3/uL (0.00-0.01); Neutrophils # (A) 5.07 X 10*3/uL (1.80-7.70); Neutrophils % (A) 73.5 %; Platelet Count 325 X 10*3/uL (140-440); RBC 4.47 X 10*6/uL (4.10-5.20); RDW 13.7 % (11.5-14.5)
[2023-08-03 17:01] LABS: ALT 21 U/L (8-44); AST 21 U/L (13-35); Albumin 4.7 g/dL (3.8-4.9); Albumin/Globulin Ratio 1.96 Ratio (1.60-3.17); Alkaline Phosphatase 99 U/L (41-126); BUN/Creat Ratio 25.86 Ratio (12.00-20.00); Blood Urea Nitrogen 18.1 mg/dL (9.0-27.0); Calcium 10.4 mg/dL (8.7-10.3); Carbon Dioxide 23.7 mmol/L (21.6-31.8); Chloride 108 mmol/L (96-109); Chol/HDL Ratio 2.69 Ratio; Globulin 2.4 g/dL (1.6-3.3); Glucose 99 mg/dL (70-110); LDL Cholesterol,Calculated 122.7 mg/dL (0.0-131.0); Potassium 4.9 mmol/L (3.5-5.5); Sodium 142 mmol/L (135-145); Total Bilirubin 0.9 mg/dL (0.3-1.2); Total Protein 7.1 g/dL (6.2-8.2); VLDL Calculation 17.36 mg/dL (5.00-40.00)
[2023-08-03 17:20] LABS: Testosterone <10.00 ng/dL (7.00-45.62)
== END | disposition home or self-care (01) ==
LOC: LABWHC1 09:04
PROVIDERS: ATTEND Family Medicine
DX: E53.8 Deficiency of other specified B group vitamins (principal); R63.5 Abnormal weight gain; Z79.899 Other long term (current) drug therapy
CPT/HCPCS: 36415; 80053; 80061; 82607; 83036; 84403; 84443; 84481; 85025

== ENCOUNTER → 2023-11-29 | Outpatient (CLI) | payer BC ==
--- NOTE | 2023-11-30 18:15 | MM ---
Reason for Exam: Screening (asymptomatic). Last screening mammogram was performed 12 month(s) ago. Patient History: Menarche at age 12. First Full-Term at age 18. Hysterectomy at age 27. Postmenopausal. Patient used Hormonal Contraceptives for 1 year. Sister had breast cancer at or over age 50. Risk Values: Savannah 5 year model risk: 2.5%. NCI Lifetime model risk: 12.4%. Prior Study Comparison: 02/29/2012 Bilateral MG screening mammo w CAD - 2, [facility]. 02/29/2012 Bilateral MG screening mammo w CAD - 2, [facility]. 11/09/2022 Bilateral MG 3D screening mammo w/cad, [facility]. Tissue Density: The breasts are heterogeneously dense, which may obscure small masses. Findings: Analyzed By CAD. There is no suspicious group of microcalcifications or new suspicious mass in either breast. Overall Assessment: Benign, BI-RAD 2 Management: Screening Mammogram of both breasts in 1 year. . Patient should continue monthly self-breast exams. A clinical breast exam by your physician is recommended on an annual basis. This exam should not preclude additional follow-up of suspicious palpable abnormalities. Note on Savannah scores and lifetime risk: 1. A Savannah score greater than 3% is considered moderate risk. If this is the case, consider specialist referral to assess eligibility for a risk reducing agent. 2. If overall lifetime risk for the development of breast cancer is 20% or higher, the patient may qualify for future screening with alternating mammogram and breast MRI. Electronically signed and approved by: Calvin Zamarripa M.D. Radiologist
== END | disposition home or self-care (01) ==
LOC: RADMAMWWP 10:59
PROVIDERS: ATTEND Family Medicine
DX: Z12.31 Encounter for screening mammogram for malignant neoplasm of breast (principal); Z78.0 Asymptomatic menopausal state; Z80.3 Family history of malignant neoplasm of breast
CPT/HCPCS: 77063; 77067